=== PATIENT | female | born 1955 | race Caucasian/White ===

== ENCOUNTER → 2019-07-18 | Outpatient (CLI) | payer BC ==
[~2019-07-18] MED LIST: ACCUFLORA PO; ALBU17AE3 IH; ANTARA PO; ASP81TEC PO; AZIT-21 PO; DILT120C PO; DIPH-450 PO; DOCU100T7 PO; ESTR1TAB24 PO; MEDR2.5T6 PO; MMT17NA NS; MULT-305 PO; OMG1KC PO; SIMV40TA4 PO; UBID10CA8 PO
[2019-07-18 10:00] LABS: POTASSIUM 4.1 MMOL/L (3.6-5.0); SODIUM 139 MMOL/L (135-145)
[2019-07-18 10:01] LABS: CARBON DIOXIDE 21 MMOL/L (21-32); CHLORIDE 103 MMOL/L (98-107)
[2019-07-18 10:02] LABS: BUN/CREATININE RATIO 21; CALCIUM 9.3 MG/DL (8.5-10.1); CREATININE SERUM 0.56 MG/DL (0.60-1.30); GFR ESTIMATED > 60; GLUCOSE 115 MG/DL (70-105)
[2019-07-18 10:03] LABS: ALKALINE PHOSPHATASE 66 U/L (40-136); BILIRUBIN,TOTAL 0.6 MG/DL (0.1-1.0)
[2019-07-18 10:04] LABS: ALANINE AMINOTRANSFERASE 14 U/L (0-55); ALBUMIN 4.6 GM/DL (3.2-4.5); TOTAL PROTEIN 7.4 GM/DL (6.4-8.2)
[2019-07-18 14:57] LABS: CHOLESTEROL 187 MG/DL (< 200); HDL CHOLESTEROL 60 MG/DL (40-60); TRIGLYCERIDES 174 MG/DL (<150); VLDL CHOLESTEROL 35 MG/DL (5-40)
== END ==
LOC: LAB FS 08:37
PROVIDERS: ATTEND Family Medicine
DX: E78.5 Hyperlipidemia, unspecified (principal)
CPT/HCPCS: 36415; 80053; 80061

== ENCOUNTER → 2021-08-11 | Outpatient (CLI) | payer MEDICARE, BC ==
--- NOTE | 2021-08-11 13:03 | Diagnostic Imaging Report ---
CLINICAL INDICATION: Patient with a small bump on the left side of cartilage for one to 2 months. EXAM: Axial CT scan of the maxillofacial structures without IV contrast . Coronal and sagittal reformations were performed. Auto Exposure Controls were utilized during the CT exam to meet ALARA standards for radiation dose reduction. COMPARISON: None. FINDINGS: PARANASAL SINUSES: FRONTAL: Unremarkable. ETHMOID: There is minimal mucosal thickening. MAXILLARY: There is minimal mucosal thickening involving right maxillary sinus. Left maxillary sinus is clear. SPHENOID: Unremarkable. OTHER PARANASAL SINUS FINDINGS: The ostiomeatal unit regions are patent. NASAL SEPTUM: There is 3 mm of leftward nasal septal patient with roughly 2 mm of broad leftward directed nasal septal bony spur involving the midportion of the nasal septum. There is nonspecific soft tissue prominence involving the anterior cartilaginous portion of the nasal septum. There is no measurable mass. This area is in the midline with convex borders to the right and left sides. This area measures 1.4 cm in greatest width. There is no significant narrowing of the nasal cavity. VISUALIZED TEMPORAL BONE STRUCTURES: Unremarkable. BONY STRUCTURES: Unremarkable. EXTRACRANIAL SOFT TISSUE/ ORBITS: Unremarkable. IMPRESSION: 1: There is nonspecific soft tissue thickening involving the anterior aspect of the nasal septum cartilaginous portion. There is no radiodense foreign object or air seen in the region. 2: There is mild leftward nasal septal deviation and a small leftward directed nasal septal bony spur in the midportion of the bony nasal septum. 3: There is minimal paranasal sinus disease. Dictated by: Dictated on workstation # [id number]
== END ==
LOC: RAD FS 11:27
PROVIDERS: ATTEND Family Medicine
DX: J34.2 Deviated nasal septum (principal); R22.0 Localized swelling, mass and lump, head; J34.89 Other specified disorders of nose and nasal sinuses
CPT/HCPCS: 70486

== ENCOUNTER 2023-01-29 13:33 | Emergency (ER) | payer MEDICARE, BC ==
[~2023-01-29] VITALS: Ht 147.3 cm; Wt 88.5 kg
--- NOTE | 2023-01-29 13:44 | ED GI ---
General Chief Complaint: Abdominal/GI Problems Stated Complaint: RECTAL BLEEDING History of Present Illness Date Seen by Provider: Jan 29, 2023 Time Seen by Provider: 13:40 Initial Comments 67-year-old female presents with some bloody stool. She reports that it started around 10 AM yesterday where she had bloody stool with some clots. She had a additional couple stools but appears to be improving. She reports she had a negative colonoscopy in [address] Crane. She has no significant abdominal pain, maybe some mild nausea. She reports that they found diverticuli on her colonoscopy but no other abnormal findings. Allergies and Home Medications Allergies Coded Allergies: erythromycin base (Unverified Allergy, Unknown, STOMACH UPSET, 01/29/23) Patient Home Medication List Home Medication List Reviewed: Yes Albuterol (Proventil) 17 Gm Inh, 1 SPRAY IH NEEDED, (Reported) Entered as Reported by: DREW TOTH on 07/01/101215 Aspirin (Aspirin Ec 81 Mg) 81 Mg Tabec, 81 MG PO HS, (Reported) Entered as Reported by: DREW TOTH on 07/01/101215 Azithromycin (Zithromax Tab) 250 Mg Tab, 1 TAB PO DAILY, (Reported) Entered as Reported by: DREW TOTH on 07/01/101215 Diltiazem Hcl (Diltiazem 24HR Er) 120 Mg Cap.sr.24h, 120 MG PO EVERY 3 DAYS, (Reported) Entered as Reported by: DREW TOTH on 07/01/101215 Diphenhydramine Hcl (Allergy Relief) 25 Mg Tablet, 25 MG PO HS, (Reported) Entered as Reported by: DREW TOTH on 07/01/101215 Docusate Sodium (Stool Softener) 100 Mg Tablet, 100 MG PO HS, (Reported) Entered as Reported by: DREW TOTH on 07/01/101215 Estradiol (Estradiol) 1 Mg Tablet, 1 MG PO HS, (Reported) Entered as Reported by: DREW TOTH on 07/01/101215 Medroxyprogesterone Acetate (Medroxyprogesterone Acetate) 2.5 Mg Tablet, 1 EACH PO HS, (Reported) Entered as Reported by: DREW TOTH on 07/01/101215 Mometasone Furoate (Nasonex) 17 Gm [place], 1 SPRAY NS HS, (Reported) Entered as Reported by: DREW TOTH on 07/01/101215 Multivits W-Ca,Fe,Other Min (Women's Daily Multivitamin) 1 Each Tablet, 1 EACH PO HS, (Reported) Entered as Reported by: DREW TOTH on 07/01/101215 [place] 3 Polyunsat Fatty Acids (Fish Oil) 1,000 Mg Cap, 3,000 MG PO HS, (Reported) Entered as Reported by: DREW TOTH on 07/01/101215 Simvastatin (Simvastatin) 40 Mg Tablet, 40 MG PO HS, (Reported) Entered as Reported by: DREW TOTH on 07/01/101215 Ubidecarenone (Co Q-10) 10 Mg Capsule, 10 MG PO HS, (Reported) Entered as Reported by: DREW TOTH on 07/01/101215 [Accuflora] , 1 TAB PO HS, (Reported) Entered as Reported by: DREW TOTH on 07/01/101215 [Antara] , 130 MG PO HS, (Reported) Entered as Reported by: DREW TOTH on 07/01/101215 Review of Systems Review of Systems Constitutional: see HPI EENTM: No Symptoms Reported Respiratory: No Symptoms Reported Cardiovascular: No Symptoms Reported Gastrointestinal: Rectal Bleeding Genitourinary: No Symptoms Reported Musculoskeletal: no symptoms reported Skin: no symptoms reported Psychiatric/Neurological: No Symptoms Reported Past Bpduyiv-Nlcqsi-Spbkft Hx Past Medical History Reproductive Disorders: Yes (CERVICAL POLYP, DUB) Physical Exam Vital Signs Vital Signs - First Documented 01/29/23 13:45 Temp 36.7 Pulse 108 Resp 16 B/P (MAP) 163/86 (111) Pulse Ox 96 O2 Delivery Room Air Capillary Refill : Height/Weight/BMI Height: '" Weight: lbs. oz. kg; BMI Method: General Appearance: WD/WN Neck: supple Respiratory: lungs clear, normal breath sounds Cardiovascular: normal peripheral pulses, regular rate, rhythm Gastrointestinal: soft, tenderness (Minimal left abdomen) Extremities: non-tender, normal inspection Neurologic/Psychiatric: no motor/sensory deficits, alert, normal mood/affect, oriented x 3 Skin: normal color, warm/dry Progress/Results/Core Measures Results/Orders Lab Results Laboratory Tests Test 01/29/23 13:45 Range/Units White Blood Count 9.2 4.3-11.0 10^3/uL Red Blood Count 4.65 3.80-5.11 10^6/uL Hemoglobin 13.6 11.5-16.0 g/dL Hematocrit 42 35-52 % Mean Corpuscular Volume 90 80-99 fL Mean Corpuscular Hemoglobin 29 25-34 pg Mean Corpuscular Hemoglobin Concent 33 32-36 g/dL Red Cell Distribution Width 14.1 10.0-14.5 % Platelet Count 276 130-400 10^3/uL Mean Platelet Volume 9.5 9.0-12.2 fL Immature Granulocyte % (Auto) 0 % Neutrophils (%) (Auto) 76 H 42-75 % Lymphocytes (%) (Auto) 17 12-44 % Monocytes (%) (Auto) 5 0-12 % Eosinophils (%) (Auto) 1 0-10 % Basophils (%) (Auto) 0 0-10 % Neutrophils # (Auto) 7.1 1.8-7.8 10^3/uL Lymphocytes # (Auto) 1.6 1.0-4.0 10^3/uL Monocytes # (Auto) 0.5 0.0-1.0 10^3/uL Eosinophils # (Auto) 0.1 0.0-0.3 10^3/uL Basophils # (Auto) 0.0 0.0-0.1 10^3/uL Immature Granulocyte # (Auto) 0.0 0.0-0.1 10^3/uL Prothrombin Time 13.0 12.2-14.7 SEC INR Comment 0.9 0.8-1.4 Activated Partial Thromboplast Time 28 24-35 SEC Sodium Level 138 135-145 MMOL/L Potassium Level 4.2 3.6-5.0 MMOL/L Chloride Level 104 98-107 MMOL/L Carbon Dioxide Level 21 21-32 MMOL/L Anion Gap 13 5-14 MMOL/L Blood Urea Nitrogen 11 7-18 MG/DL Creatinine 0.54 L 0.60-1.30 MG/DL Estimat Glomerular Filtration Rate 101 BUN/Creatinine Ratio 20 Glucose Level 105 70-105 MG/DL Calcium Level 8.6 8.5-10.1 MG/DL Corrected Calcium 8.4 L 8.5-10.1 MG/DL Total Bilirubin 0.5 0.1-1.0 MG/DL Aspartate Amino Transf (AST/SGOT) 19 5-34 U/L Alanine Aminotransferase (ALT/SGPT) 15 0-55 U/L Alkaline Phosphatase 87 40-136 U/L Total Protein 7.1 6.4-8.2 GM/DL Albumin 4.3 3.2-4.5 GM/DL Lipase 16 8-78 U/L My Orders Orders - ENRIQUEZ,MARIA DEL ROSARIO L DO Cbc With Automated Diff (01/29/23 13:44) Comprehensive Metabolic Panel (01/29/23 13:44) Lipase (01/29/23 13:44) Protime With Inr (01/29/23 13:44) Partial Thromboplastin Time (01/29/23 13:44) Ct Abdomen/Pelvis W (01/29/23 14:17) Iohexol Injection (Omnipaque 350 Mg/Ml 1 (01/29/23 14:30) Received Contrast (Hold Metformin- Contr (01/29/23 14:30) Ns (Ivpb) 100 Ml (Sodium Chloride 0.9% 1 (01/29/23 14:30) Medications Given in ED Current Medications Medications Dose Ordered Sig/Bjorn Route Start Time Stop Time Status Last Admin Dose Admin Iohexol 100 ml ONCE ONCE IV 01/29/23 14:30 01/29/23 14:31 DC 01/29/23 14:56 80 ML Sodium Chloride 100 ml ONCE ONCE IV 01/29/23 14:30 01/29/23 14:31 DC 01/29/23 14:56 100 ML Vital Signs/I&O 01/29/23 13:45 Temp 36.7 Pulse 108 Resp 16 B/P (MAP) 163/86 (111) Pulse Ox 96 O2 Delivery Room Air Progress Progress Note : Progress Note Patient's diagnostic studies were ordered reviewed and interpreted by me. Patient has a stable hemoglobin with no concerns. Labs are otherwise normal. Patient CT abdomen pelvis was obtained and reviewed and found to rotation per radiology report. Patient has diverticulosis but no signs of diverticulitis. Patient's symptoms are likely due to bleeding diverticulosis. Discussed with Dr. Crane who did her colonoscopy in 2020. He recommended clear liquid diet for 24 hours then advance as tolerated and follow-up with him next week. She should return to the ER with worsening of symptoms or any concerns. She was stable and discharged home. Diagnostic Imaging Diagonstic Imaging: CT Plain Films/CT/US/NM/MRI: abdomen, pelvis Comments Date of Exam:01/29/23 CT ABDOMEN/PELVIS W EXAMINATION: CT abdomen and pelvis with intravenous contrast. TECHNIQUE: Multiple contiguous axial images were obtained through the abdomen and pelvis after the uneventful administration of intravenous contrast. All CT scans use one or more of the following dose optimizing techniques: Automated exposure control, MA and/or KvP adjustment based on patient size and exam type or iterative reconstruction. HISTORY: Bloody stools. COMPARISON: None available. FINDINGS: The heart is unremarkable. The included lung bases are clear. Calculus is seen in the superior pole of the right kidney measuring 3 mm. No obstructing calculi or hydronephrosis. The urinary bladder is nondistended. The liver, spleen, pancreas, and adrenal glands have a normal appearance. The gallbladder is unremarkable. There is no pathologically enlarged mesenteric or retroperitoneal adenopathy. The bowel loops are nondilated. The appendix is visualized in the right lower quadrant and has a normal appearance. Diverticulosis of the descending and sigmoid colon is seen without evidence of acute diverticulitis. There is no free fluid or free air. No acute osseous abnormalities. There is scattered calcified aortic and iliac atherosclerotic plaque without aneurysm. There is no free air, loculated collection, or adenopathy in the pelvis. IMPRESSION: 1. Diverticulosis of the descending and sigmoid colon without evidence of acute diverticulitis. No bowel obstruction. No free fluid or free air. 2. Nonobstructing calculus in the right kidney. No obstructive calculi or hydronephrosis. Reviewed: Reviewed by Me, Reviewed/Discussed Departure Impression Primary Impression: Diverticulosis of colon with hemorrhage of large intestine Disposition: 01 HOME, SELF-CARE Condition: Stable Departure-Patient Inst. Referrals: HARDEEP ARZATE MD (PCP/Family) Primary Care Physician Patient Instructions: Bloody Stools, Adult ED, CLEAR LIQUID DIET ADULT/CHILD, Diverticulosis (DC), High Fiber Diet Add. Discharge Instructions: Clear liquid diet for the next 24 hours then advance as tolerated. Please call Dr. Crane's office first thing Wednesday morning to arrange for an appointment to have your symptoms rechecked and further outpatient management. Return to the ER with any concerns or worsening of your symptoms. All discharge instructions reviewed with patient and/or family. Voiced understanding. MARIA DEL ROSARIO ENRIQUEZ DO Jan 29, 2023 13:44
[2023-01-29 13:51] LABS: BASOPHILS % (AUTO) 0 % (0-10); EOSINOPHILS # (AUTO) 0.1 10^3/uL (0.0-0.3); EOSINOPHILS % (AUTO) 1 % (0-10); HEMATOCRIT 42 % (35-52); HEMOGLOBIN 13.6 g/dL (11.5-16.0); LYMPHOCYTES # (AUTO) 1.6 10^3/uL (1.0-4.0); LYMPHOCYTES % (AUTO) 17 % (12-44); MEAN CORPUSCULAR HEMOGLOBIN 29 pg (25-34); MEAN CORPUSCULAR HGB CONC 33 g/dL (32-36); MEAN CORPUSCULAR VOLUME 90 fL (80-99); MEAN PLATELET VOLUME 9.5 fL (9.0-12.2); MONOCYTES # (AUTO) 0.5 10^3/uL (0.0-1.0); MONOCYTES % (AUTO) 5 % (0-12); NEUTROPHILS # (AUTO) 7.1 10^3/uL (1.8-7.8); NEUTROPHILS % (AUTO) 76 % (42-75); PLATELET COUNT 276 10^3/uL (130-400); WHITE BLOOD COUNT 9.2 10^3/uL (4.3-11.0)
[2023-01-29 14:03] LABS: INR 0.9 (0.8-1.4)
[2023-01-29 14:13] LABS: ALBUMIN 4.3 GM/DL (3.2-4.5); BILIRUBIN,TOTAL 0.5 MG/DL (0.1-1.0); CALCIUM 8.6 MG/DL (8.5-10.1); CREATININE SERUM 0.54 MG/DL (0.60-1.30); POTASSIUM 4.2 MMOL/L (3.6-5.0); TOTAL PROTEIN 7.1 GM/DL (6.4-8.2)
[2023-01-29] MEDS ORDERED: IOHEXOL 350 MG/ML 100 ML (OMNIPAQUE 350) VIAL IV ONE (14:30)
[2023-01-29] MEDS ORDERED: NS 100 ML (IVPB) BAG IV ONE (14:30)
[2023-01-29] MEDS ORDERED: HOLD METFORMIN - RECEIVED CONTRAST 20 ML VIAL IV SCH (14:30)
--- NOTE | 2023-01-29 15:15 | Diagnostic Imaging Report ---
EXAMINATION: CT abdomen and pelvis with intravenous contrast. TECHNIQUE: Multiple contiguous axial images were obtained through the abdomen and pelvis after the uneventful administration of intravenous contrast. All CT scans use one or more of the following dose optimizing techniques: Automated exposure control, MA and/or KvP adjustment based on patient size and exam type or iterative reconstruction. HISTORY: Bloody stools. COMPARISON: None available. FINDINGS: The heart is unremarkable. The included lung bases are clear. Calculus is seen in the superior pole of the right kidney measuring 3 mm. No obstructing calculi or hydronephrosis. The urinary bladder is nondistended. The liver, spleen, pancreas, and adrenal glands have a normal appearance. The gallbladder is unremarkable. There is no pathologically enlarged mesenteric or retroperitoneal adenopathy. The bowel loops are nondilated. The appendix is visualized in the right lower quadrant and has a normal appearance. Diverticulosis of the descending and sigmoid colon is seen without evidence of acute diverticulitis. There is no free fluid or free air. No acute osseous abnormalities. There is scattered calcified aortic and iliac atherosclerotic plaque without aneurysm. There is no free air, loculated collection, or adenopathy in the pelvis. IMPRESSION: 1. Diverticulosis of the descending and sigmoid colon without evidence of acute diverticulitis. No bowel obstruction. No free fluid or free air. 2. Nonobstructing calculus in the right kidney. No obstructive calculi or hydronephrosis. Dictated by: Dictated on workstation # [id number]
[2023-01-29 15:30] VITALS: BP 155/67
== END 2023-01-29 15:30 | disposition home or self-care (01) ==
LOC: EDUNIT# 13:33 → ER FS 13:34
DX: K57.31 Diverticulosis of large intestine without perforation or abscess with bleeding (principal)
CPT/HCPCS: 36415; 74177; 80053; 83690; 85025; 85610; 85730; Q9967